=== PATIENT | female | born 1960 ===

== ENCOUNTER 2018-08-24 13:16 | Day surgery (SDC) | payer BC ==
[~2018-08-24 13:16] MED LIST: CEFAZOLIN SODIUM 2 GM in DEXTROSE 5%-WATER 100 ML IV PRN; DEXAMETHASONE SOD PHOSPHATE INJ 4 MG/1 ML VIAL ONE; FENTANYL CITRATE INJ/PF 100 MCG/2 ML AMPUL ONE; LACTATED RINGERS 1000 ML IV PRN; LIDOCAINE 0.5% INJ-PF (5 MG/ML) 50 ML SDV SUBCUT PRN; MIDAZOLAM 2 MG/2 ML INJ ONE; ONDANSETRON HCL INJ/PF 4 MG/2 ML SDV ONE; PROPOFOL INJ 200 MG/20 ML VIAL IV ONE; SCOPOLAMINE HYDROBROMIDE 1.5 MG PATCH.TD72 TD PRN; SUCCINYLCHOLINE CHLORIDE INJ 200 MG/10 ML VIAL ONE
[2018-08-24] MEDS ORDERED: SCOPOLAMINE HYDROBROMIDE 1.5 MG PATCH.TD72 ONE (14:15)
--- NOTE | 2018-08-24 14:45 | RADIOLOGY REPORT (SQ) ---
EXAM DESCRIPTION: CHEST SINGLE VIEW COMPLETED DATE/TIME: 08/24/2018 2:19 pm REASON FOR STUDY: preop COMPARISON: None. EXAM PARAMETERS: NUMBER OF VIEWS: One view. TECHNIQUE: Single frontal radiographic view of the chest acquired. RADIATION DOSE: NA LIMITATIONS: None. FINDINGS: LUNGS AND PLEURA: No opacities, masses or pneumothorax. No pleural effusion. MEDIASTINUM AND HILAR STRUCTURES: No masses. Contour normal. HEART AND VASCULAR STRUCTURES: Heart normal in size. Normal vasculature. BONES: No acute findings. HARDWARE: None in the chest. OTHER: No other significant finding. IMPRESSION: NO ACUTE RADIOGRAPHIC FINDING IN THE CHEST. TECHNICAL DOCUMENTATION: JOB ID: [id number] [email or web address]- All Rights Reserved Reading location - IP/workstation name: [email or web address]
[2018-08-24] MEDS ORDERED: DIPHENHYDRAMINE HCL 50 MG/ML VIAL IV PRN (15:09)
[2018-08-24] MEDS ORDERED: MORPHINE SULFATE 10 MG/ML INJ IV PRN ×2 (15:09→17:26)
[2018-08-24] MEDS ORDERED: FENTANYL CITRATE INJ/PF 100 MCG/2 ML AMPUL IV PRN ×3 (15:09)
[2018-08-24] MEDS ORDERED: PROMETHAZINE HCL INJ 25 MG/1 ML VIAL IV PRN ×2 (15:09)
[2018-08-24] MEDS ORDERED: MEPERIDINE HCL/PF INJ 25 MG/1 ML DISP.SYRIN IV PRN (15:09)
[2018-08-24] MEDS ORDERED: ONDANSETRON HCL INJ/PF 4 MG/2 ML SDV IV PRN ×2 (15:09→17:26)
[2018-08-24] MEDS ORDERED: OXYCODONE-ACETAMINOPHEN 5-325 MG TABLET PO PRN (17:26)
--- NOTE | 2018-08-24 17:27 | Discharge Summary ---
Discharge Summary (SDC) - Discharge Final Diagnosis: Right carpal tunnel syndrome Date of Surgery: 08/24/18 Discharge Date: 08/24/18 Condition: Good Treatment or Instructions: Schedule Follow Up w/ Dr. Perfecto Aldridge @ [facility] to be seen in 10-14 days or as scheduled [place]: [place]: [place]: Schedule Follow Up w/ Dr. Perfecto Aldridge @ [facility] to be seen in 10-14 days or as scheduled [place]: [place]: [place]: Ice and elevate Keep splint clean/dry/intact, do not remove. If your fingers become numb please unwrap the Maxx wrap but leave the splint in place, if the sensation does not return within 30 minutes please return to the emergency department. May begin finger range of motion attempting to make full fist. Please use ibuprofen (Motrin or Advil) 600-800 mg every 8 hours as needed for pain or fever DO NOT TAKE w/ TORADOL may use once TORADOL complete. You may also use acetaminophen (Tylenol) 1000 mg every 4-6 hours as needed for pain or fever. Please be aware that many medications contain acetaminophen, do not exceed a total of 1000 mg of acetaminophen every 6 hours. If ibuprofen and acetaminophen are not sufficient for your pain you may take the Percocet/[place]. Please be aware that the Percocet/[place] does contain Tylenol. Stool softener of choice when on pain medication. USE OF [id number]-[id number] IBUPROFEN: Ibuprofen (Advil, Nuprin, Medipren, Motrin IB) is a medication for fever and pain control. In addition, it has anti- inflammatory effects which may be beneficial, especially in the treatment of injuries. It's best to take ibuprofen with food. Persons with ulcer disease or allergy to aspirin should notify their physician of this before taking ibuprofen. Ibuprofen can be given every four to six hours, for a total of four doses daily. Age Pain or fever dose Antiinflammatory dose 6-8 yr 200 mg (1 tab) 200 mg (1 tab) 9-11 yr 200 mg (1 tab) 200-400 mg (1-2 tab) 11-14 yr 200-400 mg (1-2 tab) 400 mg (2 tab) 15-adult 400 mg (2 tab) 600 mg (3 tab) ORAL NARCOTIC MEDICATION: You have been given a prescription for pain control. This medication is a narcotic. It's best taken with food, as nausea can result if taken on an empty stomach. Don't operate machinery or drive within six hours of taking this medication. Do not combine this medicine with alcohol, or with any medication which can cause sedation (such as cold tablets or sleeping pills) unless you get permission from the physician. Narcotics tend to cause constipation. If possible, drink plenty of fluids and eat a diet high in fiber and fruits. Please be aware that prescription narcotics also have the potential for abuse. People become addicted to these medications because of the general sense of wellbeing that they induce. This feeling along with a significant reduction in tension, anxiety, and aggression provides a stimulating seductive quality to these drugs. Once your pain is under control, we encourage you to discard your unused narcotics. Prescriptions: Oxycodone HCl/Acetaminophen [Percocet 5-325 mg Tablet] 1 tab PO Q6 PRN #25 tab PRN Reason: Discharge Diet: Regular Respiratory Treatments at Home: Deep Breathing/Coughing Discharge Activity: No Lifting Over 10 Pounds, No Lifting/Push/Pulling Report the Following to Your Physician Immediately: Fever over 101 Degrees, Unusual Bleeding, Redness, Swelling, Warmth, Increased Soreness
--- NOTE | 2018-08-24 17:38 | Operative Report ---
Operative Report DATE OF SURGERY: 08/24/18 PREOPERATIVE DIAGNOSIS: Persistent RIGHT carpal tunnel syndrome POSTOPERATIVE DIAGNOSIS: Persistent carpal tunnel with incomplete laceration involving the sensory branch to the first webspace. OPERATION: Revision right carpal tunnel release with partial median nerve repair, hypo-thenar fat pad transfer SURGEON: JESS BERG ANESTHESIA: GA COMPLICATIONS: None ESTIMATED BLOOD LOSS: Minimal PROCEDURE: Indication for above procedure: 57-year-old female with numbness and tingling throughout the right upper extremity. Patient underwent endoscopic carpal tunnel release at an outside facility but continued to have persistent nerve symptoms with mild worsening. Upon follow-up with me we discussed treatment options including operative versus nonoperative intervention after discussing risks benefits and postoperative expectations and recovery patient verbalized understanding consented for surgic al procedure. Procedure In Detail: Patient was seen and evaluated in the preoperative holding area. The RIGHT upper extremity was initialized and marked. Patient received 2g of Ancef IV for bacterial prophylaxis. Patient was taken back to the operative room where transferred to the operative table and placed under general anesthesia. Once they were adequately anesthetized a nonsterile tourniquet was placed on the upper extremity. A surgical team debriefing was performed ensuring all instrumentation was available, the surgical procedure was discussed with possible concerns reviewed. The upper extremity was prepped with chlorhexidine and alcohol and draped in a sterile fashion. A timeout was done identifying correct patient, procedure and extremity everyone in attendance agree with this and verbalized no concerns. The extremity was exsanguinated the tourniquet was inflated to 250 mmHg. Skin incision was made extending from Leblanc's cardinal line to proximal to the wrist flexion crease at previous transverse incision from endoscopic carpal tunnel. There was evidence of a bifid median nerve which split just distal to the wrist flexion crease. A peripheral veins were coagulated with bipolar cautery. The volar antebrachial fascia was incised proximal to carpal tunnel surgery normal median nerve was identified. The palmar fascia was then incised in line with the skin incision distally to the superficial palmar arch. Remnant of the transverse carpal ligament was identified. This remnant was released from proximal to distal until abnormal appearing median nerve was encountered. At the level 1 cm proximal to Leblanc's cardinal line the median nerve was adherent to the undersurface of the transverse carpal ligament at that point this area was bypassed in the distal nerve branches of the median nerve were identified including the branch to the third, second, first webspace and recurrent motor branches. The nerve stimulator was then utilized there was no evidence of conduction across this median nerve segment however the motor branch segments did demonstrate innervation to the intrinsics and abductor pollicis brevis. Meticulous blunt dissection was then performed with the median nerve was scarred to the transverse carpal ligament. A transligamentous recurrent motor branch was identified and remained intact. Once the median nerve was successfully freed from the undersurface of the radial leaflet. Intrafascicular dissection was then performed from normal-appearing nerve to distally. At the level of the scar tissue the was disruption of the common digital nerve to the first webspace including approximately 3 fascicles. The nerve was debrided proximally and distally until normal-appearing fascicles were confirmed. A 18 mm gap remained after debridement. Under microscope magnification these 3 fascicles were then repaired with a 2 mm Axogen nerve graft which was secured distally with interrupted 8-0 nylon suture and then proximally with 8-0 nylon suture tensionless repair was performed there is no evidence of tension with wrist flexion or extension. The repair sites were then reinforced with Tisseel fibrin glue. A Axogen 10 mm x 40 mm nerve wrap was placed around the repair sites and secured with horizontal mattress 6-0 nylon suture. Wound was copiously irrigated with normal saline. Tourniquet was deflated. Any peripheral bleeding was controlled with bipolar cautery. Patient had normal cap refill and skin turgor and superficial palmar arch remained patent. Subcutaneous tissues were then closed with 4-0 Monocryl suture. Skin was closed with interrupted 4-0 nylon suture. 20 cc of 0.5% bupivacaine without epinephrine was injected for postoperative pain control. Wound was dressed with Xeroform 4 x 4's and patient was placed in a volar wrist splint immobilizing the MP joints and wrist in neutral position. Sponge counts, instrument counts, needle counts were correct. Patient was then awoken from anesthesia. Transferred from the operating room table to the operating room stretcher. There was no intraoperative complications patient tolerated procedure well stable to PACU. Postoperative plan: Patient follow-up the office in 2 weeks we will set her up for occupational at that time for volar resting splint.
[2018-08-24] MEDS ORDERED: KETOROLAC TROMETHAMINE INJ/PF 30 MG/1 ML SDV ONE (18:08)
[2018-08-24] MEDS ORDERED: ACETAMINOPHEN 1,000 MG/100 ML RTUPB IV ONE (18:08)
[2018-08-24] MEDS ORDERED: TRAMADOL HCL 50 MG TABLET ONE (18:53)
[2018-08-24 20:22] VITALS: BP 131/71
== END 2018-08-24 20:00 | disposition home or self-care (01) ==
LOC: OROUT 13:16
PROVIDERS: ATTEND Orthopaedic Surgery
DX: G56.01 Carpal tunnel syndrome, right upper limb (principal); Z79.82 Long term (current) use of aspirin; Z79.899 Other long term (current) drug therapy; K21.9 Gastro-esophageal reflux disease without esophagitis; Z87.891 Personal history of nicotine dependence; Z01.812 Encounter for preprocedural laboratory examination; Z01.810 Encounter for preprocedural cardiovascular examination; Z01.811 Encounter for preprocedural respiratory examination; M25.531 Pain in right wrist
CPT/HCPCS: 71045; 64721; 14040; J2250; J0690; J1100; J3010; J1885; J0330; J2405; J7060; J2704; J0131; 1810; C1769; C9250; C9353